=== PATIENT | male | born 1975 | race Two or more races ===

== ENCOUNTER 2016-11-09 19:59 | Emergency (ER) | payer SELFPAY ==
[2016-11-10] MEDS ORDERED: IBUPROFEN 800 MG TABLET ONE (01:15)
--- NOTE | 2016-11-10 06:56 | RAD ---
EXAMINATION:FOOT RIGHT 3 VIEWS CLINICAL INDICATION: Foot pain. COMPARISONS:none FINDINGS: No fracture or focal destruction is identified. Joint space relationships of the foot are maintained. No soft tissue abnormality is identified. IMPRESSION: Negative radiographic examination of the right foot.
== END 2016-11-10 01:56 | disposition home or self-care (01) ==
LOC: ED 19:59
DX: S99.921A Unspecified injury of right foot, initial encounter (principal); X31.XXXA Exposure to excessive natural cold, initial encounter
CPT/HCPCS: 73630; 99283 ×2; A9270